=== PATIENT | female | born 1970 | race Caucasian/White ===

== ENCOUNTER → 2021-04-14 12:16 | Outpatient (BNVA) | payer BC, SELFPAY | PROVIDERS: Family Provider Family Medicine; PCP Family Medicine; Visit Provider Specialist | DX: G35 Multiple sclerosis (principal); G47.411 Narcolepsy with cataplexy; F17.200 Nicotine dependence, unspecified, uncomplicated | CPT/HCPCS: 99214; 99215 ==

== ENCOUNTER 2021-04-23 20:00 | Outpatient (CLI) | payer BC, SELFPAY | END 2021-04-23 20:01 | disposition home or self-care (01) | LOC: SLEEP 04-24 08:16 | PROVIDERS: Family Provider Family Medicine; PCP Family Medicine; Visit Provider Specialist | DX: G47.30 Sleep apnea, unspecified (principal) | CPT/HCPCS: 95810 ==

== ENCOUNTER 2021-05-06 12:58 | Outpatient (CLI) | payer BC, SELFPAY ==
--- NOTE | 2021-05-06 13:00 | MR_ITS ---
WS: [id number] MRI CERVICAL SPINE NONCONTRAST TECHNIQUE: Sagittal T1, T2 and STIR imaging. Axial T2, gradient, and fiesta imaging. CLINICAL INFORMATION: G35 - Multiple sclerosis COMPARISON: None. FINDINGS: Straightening of the normal cervical lordosis. Cord signal is normal. No high-grade central canal steve nosis. Chronic eccentric demyelinating plaque in the right cervical cord at C3 unchanged from previous. No n ew lesions. No significant cord atrophy. Gadolinium not administered. C2-C3: Normal C3-C4: Mild left and no significant right foraminal narrowing. Spinal canal is patent. C4-C5: Mild disc bulging with a tiny central protrusion. Mild central canal stenosis. Mild bilateral foraminal narrowing left greater than right. Mild facet arthropathy. C5-C6: Mild disc bulging with osteophytic ridging. Mild central canal stenosis. Moderate left and mil d right bony foraminal narrowing with mild facet arthropathy. C6-C7: Osteophytic ridging. Mild left greater than right bony foraminal narrowing. Mild facet arthrop athy. Spinal canal is patent. C7-T1: Normal. Visualized brain stem structures: Normal. Prevertebral soft tissues: Normal. MR/MR cervical spin wo con* [id number] IMPRESSION: 1. Chronic demyelinating plaque in the right cervical cord at C3 and unchanged from previous. No new lesions. 2. No significant cord atrophy. 3. Straightening of the normal cervical lordosis. No high-grade central canal narrowing. Cord signal is normal. 4. Mild central canal stenosis C4-C5 and C5-C6. Tiny central protrusion C4-C5 with slight contact of the cervical cord. 5. Mild/moderate bony foraminal narrowing worse at left C5-C6 and left C6-C7. 6. Mild facet arthropathy C5-C6 and C6-C7. 7. Small right thyroid nodule measuring 6 mm.
--- NOTE | 2021-05-06 13:45 | MR_ITS ---
WS: [id number] MRI THORACIC SPINE WITHOUT CONTRAST TECHNIQUE: Sagittal T1, T2 and STIR imaging. Axial T2 imaging. Noncontrast imaging obtained. CLINICAL INFORMATION: G35 - Multiple sclerosis COMPARISON: None. FINDINGS: Some images degraded by patient motion. Tiny chronic appearing demyelinating plaque in the right thoracic cord at the T3 level. No other defi nite visualized demyelinating lesions considering motion artifact. Gadolinium not administered. No si gnificant cord atrophy. Normal CSF pulsation artifact in the dorsal spinal canal. Small central protrusions at T10-11 and T12-L1 with slight effacement of ventral thecal sac. Moderate facet arthropathy lower thoracic spine. Adrenal glands are normal. Normal caliber thoracic aorta. Mild thoracic curve. Mild spondylitic changes thoracic spine with anterior hypertrophic changes in th e mid and lower thoracic spine. No high-grade central canal stenosis. MR/MR thoracic spin wo con* [id number] IMPRESSION: 1. Mild thoracic curve. No acute compression fractures. 2. Tiny chronic appearing demyelinating plaque in the upper thoracic cord at t he right eccentric T3 level. No other visualized lesions. Gadolinium not admini stered. 3. Tiny shallow central protrusions at T10-11 and T12-L1 with slight effacemen t of ventral thecal sac. 4. No significant cord atrophy.
== END 2021-05-06 12:59 | disposition home or self-care (01) ==
PROVIDERS: PCP Family Medicine; Visit Provider Specialist
DX: G35 Multiple sclerosis (principal); M51.24 Other intervertebral disc displacement, thoracic region
CPT/HCPCS: 72141; 72146

== ENCOUNTER → 2021-06-09 11:38 | Outpatient (BNVA) | payer BC, SELFPAY | PROVIDERS: PCP Family Medicine; Visit Provider Specialist | DX: G35 Multiple sclerosis (principal); G47.419 Narcolepsy without cataplexy; G47.33 Obstructive sleep apnea (adult) (pediatric) | CPT/HCPCS: 99215 ==